=== PATIENT | female | born 1950 | race Caucasian/White ===

== ENCOUNTER → 2021-03-05 | Outpatient (CLI) | payer MEDICARE, OTHER | LOC: LAB FS 10:32 | PROVIDERS: ATTEND Orthopaedic Surgery Orthopaedic Surgery of the Spine | DX: Z01.812 Encounter for preprocedural laboratory examination (principal); Z20.822 Contact with and (suspected) exposure to COVID-19 | CPT/HCPCS: 87636 ==

== ENCOUNTER 2023-02-08 05:34 | Outpatient (CLI) | payer MEDICARE, OTHER ==
[~2023-02-08] VITALS: Ht 165.1 cm; Wt 57.7 kg
[2023-02-08] MEDS ORDERED: ACET-3075 PO (14:02)
[2023-02-08] MEDS ORDERED: OXYB10TA29 PO (14:02)
[2023-02-08] MEDS ORDERED: EMPA10TA PO (14:02)
[2023-02-08] MEDS ORDERED: ATOR40TA70 PO (14:02)
[2023-02-08] MEDS ORDERED: GLUC15006 PO (14:02)
[2023-02-08] MEDS ORDERED: ACET-2840 PO (14:02)
[2023-02-08] MEDS ORDERED: LEVO137C4 PO (14:02)
[2023-02-08] MEDS ORDERED: GLIM4TAB5 PO (14:02)
[2023-02-08] MEDS ORDERED: ESOM40CA52 PO (14:02)
[2023-02-08] MEDS ORDERED: METF-399 PO (14:02)
[2023-02-08] MEDS ORDERED: MAGN250T35 PO (14:02)
[2023-02-08] MEDS ORDERED: CHOL100048 PO (14:02)
[2023-02-08] MEDS ORDERED: ALEN70TA80 PO (14:02)
[2023-02-08] MEDS ORDERED: TRIA1CAP84 PO (14:02)
== END 2023-02-08 14:07 ==
LOC: PREOP 05:34
PROVIDERS: ATTEND Specialist
DX: Z01.818 Encounter for other preprocedural examination (principal)

== ENCOUNTER → 2023-02-17 | Outpatient (CLI) | payer MEDICARE, OTHER ==
[~2023-02-17] MED LIST: ACET-2840 PO; ACET-3075 PO; ALEN70TA80 PO; ATOR40TA70 PO; CHOL100048 PO; EMPA10TA PO; ESOM40CA52 PO; GLIM4TAB5 PO; GLUC15006 PO; LEVO137C4 PO; MAGN250T35 PO; METF-399 PO; OXYB10TA29 PO; TRIA1CAP84 PO
== END ==
LOC: PREOP 11:58
PROVIDERS: ATTEND Specialist
DX: Z01.818 Encounter for other preprocedural examination (principal)

== ENCOUNTER 2023-02-24 09:48 | Day surgery (SDC) | payer MEDICARE, OTHER ==
[~2023-02-24] VITALS: Ht 165 cm; Wt 57.7 kg
[2023-02-24] MEDS: TETRACAINE 0.5% OPHTH SOLN 4 ML BTL (SINGLE DOSE ONLY) OU PRN ×4 (09:59→10:15)
[2023-02-24] MEDS ORDERED: LIDOCAINE PF 1% 2 ML VIAL IR PRN (10:00)
[2023-02-24] MEDS ORDERED: MOXIFLOXACIN OPHTH SOLN 5 MG/ML 0.3 ML SYRINGE OP ONE (10:00)
[2023-02-24] MEDS ORDERED: POVIDONE (BETADINE) OPHTH SOLN 5% 30 ML OP ONE (10:00)
[2023-02-24] MEDS ORDERED: TIMOLOL 0.5% (CATARACTS) 0.3 ML BTL OU PRN (10:00)
[2023-02-24] MEDS: TROPICAMIDE 1% OPH SOLN (MYDRIACYL) 15 ML BTL OP SCH ×3 (10:05→10:15)
[2023-02-24] MEDS: PHENYLEPHRINE 10% OPHTH (NEO-SYN) 5 ML BTL OU SCH ×3 (10:05→10:15)
[2023-02-24 10:06] VITALS: BP 123/72
--- NOTE | 2023-02-24 10:39 | Ophthalmologist Pre-Op Note ---
Pre-Operative Progress Note H&P Reviewed The H&P was reviewed, patient examined and no changes noted. Date H&P Reviewed: Feb 24, 2023 Time H&P Reviewed: 10:38 Pre-Op Dx Cataract, Left Eye MEG QUINONES MD Feb 24, 2023 10:38
[2023-02-24] MEDS ORDERED: MIDAZOLAM 2 MG/2 ML (VERSED) VIAL ONE (10:43)
--- NOTE | 2023-02-24 11:04 | Ophthalmology Operative Report ---
Cataract removal/placement IOL PREOPERATIVE DIAGNOSIS: Cataract Left Eye POSTOPERATIVE DIAGNOSIS: Cataract Left Eye PROCEDURE: Cataract removal and placement of posterior chamber implant, left eye SURGEON: Joaquin Quinones ANESTHESIA: Topical with sedation COMPLICATIONS: None ESTIMATED BLOOD LOSS: Minimal DESCRIPTION OF PROCEDURE: After proper informed consent was obtained, the patient, a [id number] female, was taken to the Operating Room and the left eye was anesthetized with tetracaine. The left eye was then prepped and draped in the usual manner. A wire lid speculum was placed. A paracentesis was made at the left hand position. Preservative free lidocaine was injected into the anterior chamber followed by viscoelastic. A clear corneal incision was made in the temporal position. A capsulorrhexis was preformed and the central nuclear and cortical material were removed. The posterior capsule was polished and an Messi 20.5 AU00T0 was placed into the capsular bag. The residual viscoelastic was aspirated and balanced saline solution was injected into the anterior chamber. Moxifloxacin was injected into the anterior chamber. The wound was checked and found to be water tight. The patient tolerated the procedure well without complications. JOAQUIN QUINONES MD Feb 24, 2023 11:04
[2023-02-24 11:10] VITALS: BP 116/62
--- NOTE | 2023-02-24 13:58 | Anesthesia-General Post-Op ---
MAC Patient Condition Mental Status/LOC: Same as Preop Cardiovascular: Satisfactory Nausea/Vomiting: Absent Respiratory: Satisfactory Pain: Controlled Complications: Absent Post Op Complications Complications None Follow Up Care/Instructions Patient Instructions None needed. Anesthesiology Discharge Order Discharge Order Patient is doing well, no complaints, stable vital signs, no apparent adverse anesthesia problems. No complications reported per nursing. SHAVON OLIVIER CRNA Feb 24, 2023 13:58
== END 2023-02-24 11:12 | disposition home or self-care (01) ==
LOC: SDC 09:48
PROVIDERS: ATTEND Specialist
DX: E11.36 Type 2 diabetes mellitus with diabetic cataract (principal); H25.9 Unspecified age-related cataract; Z87.891 Personal history of nicotine dependence; Z79.84 Long term (current) use of oral hypoglycemic drugs
CPT/HCPCS: 66984; V2632